=== PATIENT | female | born 1970 | race Caucasian/White ===

== ENCOUNTER 2019-01-31 12:21 | Emergency (ER) | payer BC ==
[~2019-01-31] VITALS: Ht 162.6 cm; Wt 74.8 kg
[2019-01-31 12:34] LABS: ABSOLUTE NEUTROPHILS 3.9 thou/uL (1.4-8.2); BASOPHILS 1.2 % (0.0-2.0); EOSINOPHILS 1.7 % (0.0-3.0); HEMATOCRIT 39.7 % (37.0-47.0); HEMOGLOBIN 13.8 gm/dL (12.0-15.0); LYMPHOCYTES 35.5 % (24.0-44.0); MCH 31.1 pg (26.0-34.0); MCHC 34.8 g/dL (28.0-37.0); MCV 89.3 fL (80.0-100.0); MONOCYTES 6.7 % (1.0-8.0); PLATELET COUNT 299 thou/uL (150-400); POLYS 54.9 % (36.0-66.0); RBC 4.44 mil/uL (4.20-5.00); RDW 12.3 % (10.5-14.5); WBC 7.2 thou/uL (4.0-11.0)
[2019-01-31 12:51] LABS: ANION GAP 12 mmol/L (7-16); BUN 15 mg/dL (7-18); CALCIUM 9.6 mg/dL (8.5-10.1); CHLORIDE 104 mmol/L (98-107); CO2 26 mmol/L (21-32); GLUCOSE 112 mg/dL (74-106); POTASSIUM 3.7 mmol/L (3.5-5.1); SODIUM 142 mmol/L (136-145)
[2019-01-31 12:56] LABS: SGOT 15 U/L (15-37); SGPT 20 U/L (30-65); TOTAL BILIRUBIN 0.4 mg/dL (<0.1-1.0); TOTAL PROTEIN 7.5 g/dL (6.4-8.2); TROPONIN-I <0.06 ng/mL (<0.06)
[2019-01-31 14:46] VITALS: BP 116/68
--- NOTE | 2019-02-01 17:00 | EKG ---
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 : 1970 Requested By: Carin Renae Order Number: [id number] MD: Hadley Villeda Measurements Intervals Oto Rate: 64 P: 37 TX: 149 QRS: 40 QRSD: 90 T: 41 QT: 429 QTc: 443 Interpretive Statements Sinus rhythm Normal tracing No previous ECG available for comparison Electronically Signed On 02-01-2019 16:59:56 CDT by Hadley Villeda [email or web address] ��������������������������������������������� <ELECTRONICALLY SIGNED> ���������������������������������������� By: Hadley Villeda MD, [facility] ��������������������������������������������� 02/01/19 1659 1238 1238 Hadley Villeda MD, FACC /EPI
== END 2019-01-31 14:45 | disposition home or self-care (01) ==
LOC: ER 12:21
PROVIDERS: Physician Assistant
DX: R07.89 Other chest pain (principal); Z98.890 Other specified postprocedural states